=== PATIENT | male | born 1985 | race Caucasian/White ===

== ENCOUNTER 2023-11-02 21:36 | Emergency (ER) | payer OTHER ==
[2023-11-02 21:48] VITALS: BP 119/87; PULSE 68; RESP 18; TEMP 98.2; BMI 31.5
[2023-11-02] MEDS ORDERED: LIDOCAINE 5% TOPICAL PATCH TP ONE (22:44)
[2023-11-02] MEDS ORDERED: ACETAMINOPHEN 325 MG TABLET (FP) PO ONE (22:44)
[2023-11-02] MEDS ORDERED: LIDOCAINE 4% PATCH TP ONE (22:45)
[2023-11-02] MEDS ORDERED: ACETAMINOPHEN 500 MG TABLET (FP) ONE (22:46)
[2023-11-02] MEDS ORDERED: DIPHTH,PERTUSS(ACELL),TET 0.5 ML DISP.SYRIN IM ONE (23:31)
[2023-11-03] MEDS ORDERED: LIDOCAINE PATCH REMOVAL MC SCH (11:00)
== END 2023-11-02 23:39 | disposition home or self-care (01) ==
LOC: JER 21:36
PROC: 3E0234Z Introduction of Serum, Toxoid and Vaccine into Muscle, Percutaneous Approach (ICD-10-PCS; principal; 2023-11-02)
DX: S39.012A Strain of muscle, fascia and tendon of lower back, initial encounter (principal); M54.50 Low back pain, unspecified; S80.11XA Contusion of right lower leg, initial encounter; S80.12XA Contusion of left lower leg, initial encounter; S60.222A Contusion of left hand, initial encounter; V43.52XA Car driver injured in collision with other type car in traffic accident, initial encounter; Y93.I9 Activity, other involving external motion; Y92.410 Unspecified street and highway as the place of occurrence of the external cause
CPT/HCPCS: 73110-TC-RT-FY; 73130-TC-RT-FY; 90715; 99283-25

== ENCOUNTER 2024-05-31 18:10 | Emergency (ER) | payer OTHER ==
[2024-05-31 18:27] VITALS: RESP 20
[2024-05-31 18:35] VITALS: BP 139/87; PULSE 72; TEMP 99; BMI 32.7
[2024-05-31] MEDS ORDERED: KETOROLAC TROMETHAMINE 30 MG/1 ML VIAL ONE (20:05)
[2024-05-31] MEDS: KETOROLAC TROMETHAMINE 30 MG/1 ML VIAL IM ONE (20:15)
[2024-05-31] MEDS ORDERED: ACETAMINOPHEN 325 MG TABLET (FP) ONE (21:10)
[2024-05-31] MEDS ORDERED: METHOCARBAMOL 500 MG TABLET ONE (21:10)
[2024-05-31] MEDS ORDERED: LIDOCAINE 4% PATCH TP ONE (21:10)
[2024-05-31] MEDS: LIDOCAINE 4% PATCH TP ONE (21:16)
[2024-05-31] MEDS: ACETAMINOPHEN 325 MG TABLET (FP) PO ONE (21:17)
[2024-05-31] MEDS: METHOCARBAMOL 500 MG TABLET PO ONE (21:17)
== END 2024-05-31 21:19 | disposition home or self-care (01) ==
LOC: JER 18:10
PROC: 3E0133Z Introduction of Anti-inflammatory into Subcutaneous Tissue, Percutaneous Approach (ICD-10-PCS; principal; 2024-05-31)
DX: R07.89 Other chest pain (principal); V92.03XA Drowning and submersion due to fall off other powered watercraft, initial encounter
CPT/HCPCS: 71046-TC-FY; 71101-TC-RT-FY; 93005; 93010; 99284-25